=== PATIENT | female | born 1975 | race Caucasian/White ===

== ENCOUNTER → 2017-04-13 | Outpatient (CLI) | payer OTHER ==
[~2017-04-13] MED LIST: ALPRAZOLAM PO; AMITRYPTYLINE PO; LISINOPRIL PO; LODINE PO; NORCO 10/325 TA1 TAB PO; ORTHO TRI-7 DAYS X PO; PERCOCET10 PO; TOPAMAX PO
--- NOTE | ~2017-04-13 | MY11 ---
[facility] A Service [facility] RADIOLOGY TEXT RESULTS PATIENT: VICENTE SOLIS LOCATION: [facility] : 77 UNIT #: [id number] AGE: [address]: Nba Ames MD SEX: F ORDER DR: [id number] [address] [id number] O MR#: [id number] Acc #: [id number] NAME: VICENTE SOLIS : 1975 SEX: F STUDY DATE/TIME: 04/13/2017 13:34 UNIT: [facility] ROOM: STUDY DESCRIPTION: MY Mammogram Screening Dig Vinnie Attending Physician: Nba Ames M.D. Referring Physician: Nba Ames M.D. Ordering Physician: Nba Ames M.D. Primary Care Physician: Nba Ames M.D. MEDICAL IMAGING REPORT This report is preliminary unless electronic signature is present. EXAM Digital screening mammograms, 04/13/2017, [facility]. HISTORY 41-year-old woman baseline mammogram. Prior augmentation 2012. History of ovarian cancer in paternal grandmother. TECHNIQUE Digital imaging of each breast was completed utilizing conventional projections and standard Jc views. Review includes FDA-approved CAD device. FINDINGS Bilateral retropectoral silicone implants are present. Breast parenchyma is fatty replaced bilaterally. I see no breast mass. There are no suspicious microcalcifications and no architectural deformity. IMPRESSION Negative baseline mammogram. Bilateral retropectoral silicone implants. Annual screening recommended. Patients over the age of 40 are entered into a reminder system with target due date for the next mammogram. A result letter will also be sent to the patient. BIRADS: 1 Negative Dictated by... Luis Armando Arellano M.D. [facility] A Service [facility] RADIOLOGY TEXT RESULTS PATIENT: VICENTE SOLIS LOCATION: [facility] : 77 UNIT #: [id number] AGE: [address]: Nba Ames MD SEX: F ORDER DR: THIS IS AN ELECTRONICALLY VERIFIED REPORT Luis Armando Arellano M.D. at 04/13/2017 3:38 PM NORA/paulino TD: 04/13/2017 15:26 JOB #: [id number] MEDICAL IMAGING REPORT Page 1 of 1
== END | disposition home or self-care (01) ==
LOC: SMAM 12:58
DX: Z12.31 Encounter for screening mammogram for malignant neoplasm of breast (principal); Z98.82 Breast implant status
CPT/HCPCS: G0202